=== PATIENT | male | born 1960 | race Caucasian/White ===

== ENCOUNTER 2021-01-15 15:21 | Emergency (ER) | payer OTHER ==
[2021-01-15 16:12] LABS: RED BLOOD COUNT 4.51 M/UL (4.20-5.50); WHITE BLOOD COUNT 11.7 K/UL (4.5-11.0)
[2021-01-15 16:41] LABS: BUN/CREATININE RATIO 14 (0-10)
== END 2021-01-15 18:15 | disposition home or self-care (01) ==
LOC: ER1 15:21
PROVIDERS: Family Medicine
DX: S16.1XXA Strain of muscle, fascia and tendon at neck level, initial encounter (principal); S39.012A Strain of muscle, fascia and tendon of lower back, initial encounter; S29.012A Strain of muscle and tendon of back wall of thorax, initial encounter; R00.0 Tachycardia, unspecified; R73.9 Hyperglycemia, unspecified; F17.210 Nicotine dependence, cigarettes, uncomplicated; V49.40XA Driver injured in collision with unspecified motor vehicles in traffic accident, initial encounter; Y92.410 Unspecified street and highway as the place of occurrence of the external cause
CPT/HCPCS: 70450; 71260; 72125; 80053; 82550; 82553; 83605; 83874; 84484; 85025; 85610; 93005; 99284; Q9967